=== PATIENT | female | born 1950 | race Caucasian/White ===

== ENCOUNTER → 2022-04-21 | Outpatient (CLI) | payer MEDICARE, OTHER | LOC: PET 11:45 | PROVIDERS: ATTEND Internal Medicine Hematology & Oncology | DX: C76.0 Malignant neoplasm of head, face and neck (principal) | CPT/HCPCS: 78815; A9552 ==

== ENCOUNTER 2022-05-13 12:36 | Inpatient (IN) | payer MEDICARE ==
[2022-05-13] MEDS ORDERED: Acetaminophen 500 MG TAB ONE (13:04)
[2022-05-13] MEDS ORDERED: Ketorolac Tromethamine 30 MG/ML VIAL ONE (13:04)
[2022-05-13] MEDS ORDERED: Midazolam HCl 2 mg/2 ml Vial ONE (15:49)
[2022-05-13] MEDS ORDERED: Ketamine 50 MG/ML (10ML VIAL) ONE (15:49)
[2022-05-13] MEDS ORDERED: Lidocaine 2% PF 5 ML VIAL ONE (15:54)
[2022-05-13] MEDS ORDERED: Bupivacaine/Epinephrine 0.25% 30 ML VIAL ONE (15:54)
[2022-05-13] MEDS ORDERED: Benzocaine 20% Spray 60 ML CAN ONE (15:54)
[2022-05-13] MEDS ORDERED: CEFAZOLIN 2 GM VIAL ONE (16:01)
[2022-05-13] MEDS ORDERED: Sodium Chloride 0.9% 100 ML ONE (16:01)
[2022-05-13] MEDS ORDERED: Ondansetron PF 4 MG/2 ML Vial ONE (16:20)
[2022-05-13] MEDS ORDERED: GLYCOPYRROLATE/PF 0.2 MG/ML VIAL ONE (16:20)
[2022-05-13] MEDS ORDERED: Dexamethasone 20 MG/5 ML VIAL ONE (16:20)
[2022-05-13] MEDS ORDERED: Propofol 1,000 MG/100 ML VIAL IV ONE (18:49)
[2022-05-13] MEDS ORDERED: EPINEPHrine 1 MG/10 ML Abboject SYRINGE ONE (18:58)
[2022-05-13 18:59] LABS: Actual Bicarbonate (HCO3a) 18.4 mEq/L (22-28); Base Excess (BEa) -6.7 mEq/L (-2.0 to +3.0); CO2 Tension 34.8 mmHg (35.0-45.0); Calcium, Ionized (arterial) 1.14 mmol/L (1.12-1.30); Carboxyhemoglobin (COHb) 0.3 gm% (0.0-3.0); Hemoglobin (Hb) 9.3 g/dL (12.0-16.0); O2 Tension (PaO2), arterial 250.8 mmHg (> 70.0); pH, Arterial 7.34 (7.35-7.45)
[2022-05-13] MEDS ORDERED: NOREPINEPHRINE 8 MG/250 ML-D5W 250 ML IVPB SCH (19:00)
[2022-05-13 19:01] LABS: Puncture Site LBA
[2022-05-13] MEDS ORDERED: fentaNYL 50 mcg/mL 1 mL Vial ONE (19:18)
[2022-05-13] MEDS ORDERED: NOREPINEPHRINE 8 MG/250 ML-D5W 250 ML IVPB PRN (20:06)
[2022-05-13] MEDS ORDERED: Electrolyte Replacement Protocol 1 EACH IVPB PRN (20:06)
[2022-05-13] MEDS ORDERED: Ventilator Sedation Protocol 1 EACH FS SCH (20:15)
[2022-05-13] MEDS ORDERED: DISCONTINUE PREVIOUS NARCOTIC PAIN MEDICATIONS AND BENZODIAZEPINES FS SCH (20:15)
[2022-05-13] MEDS ORDERED: Propofol BOLUS 1,000 MG/100 ML VIAL IV PRN (20:15)
[2022-05-13] MEDS ORDERED: Propofol 1,000 MG/100 ML VIAL IV PRN (20:15)
[2022-05-13] MEDS ORDERED: Fentanyl BOLUS 250 ML IVPB PRN (20:15)
[2022-05-13] MEDS ORDERED: Morphine 2 MG/ML VIAL SLOW IVP PRN (20:15)
[2022-05-13] MEDS ORDERED: Promethazine HCl 25 MG/ML VIAL IM/IV PRN (20:30)
[2022-05-13] MEDS ORDERED: Ondansetron HCl/PF 4 MG/2 ML Vial IVP PRN (20:30)
[2022-05-13] MEDS: Fentanyl CADD 100 ML IV SCH (20:30)
[2022-05-13] MEDS: Sodium Chloride 0.45% 1,000 ML IV SCH (20:44)
[2022-05-13] MEDS: Sodium Chloride 0.9% 1,000 ML IV SCH (20:44)
[2022-05-13] MEDS: Famotidine/PF 20 mg/2ml Vial SLOW IVP SCH (20:58)
[2022-05-13] MEDS ORDERED: Dexmedetomidine In 0.9 % NaCl 100 ML IVPB SCH (21:00)
[2022-05-13 21:18] LABS: #Lymphocytes 0.8 thou/uL (1.20-3.40); #Monocytes 0.9 thou/uL (0.11-0.59); #Neutrophils 17.3 thou/uL (1.40-6.50); %Eosinophils 0.2 % (0.0-10.0); %Lymphocytes 4.1 % (21.0-51.0); %Monocytes 4.9 % (0.0-10.0); %Neutrophils 90.8 % (42.0-75.0); Hemoglobin 9.3 g/dL (12.0-16.0); Mean Corpuscular HGB CONC 31.4 g/dL (32.0-36.0); Mean Corpuscular Hemoglobin 24.3 pg (27.0-31.0); Mean Corpuscular Volume 77.3 fl (78.0-98.0); Mean Platelet Volume 7.7 fL (7.4-10.4); Platelet Count 424 10x3/uL (130-400); RBC Distribution Width 15.6 % (11.5-14.5); Red Blood Cell (RBC) Count 3.81 mill/uL (4.20-5.40)
[2022-05-13 21:34] LABS: Lactic Acid 3.6 mmol/L (0.5-2.2)
[2022-05-13 21:39] LABS: ALT (SGPT) 11 U/L (8-55); AST (SGOT) 26 U/L (5-34); Albumin 3.3 g/dL (3.4-4.8); Alkaline Phosphatase 81 U/L (40-110); Anion Gap 19 mmol/L (10-20); BUN (Urea Nitrogen) 17 mg/dL (9.8-20.1); Bilirubin, Total 0.3 mg/dL (0.2-1.2); Calc. Creatinine Clearance 46 mL/min (70-130); Calcium 8.5 mg/dL (7.8-10.44); Carbon Dioxide 15 mmol/L (23-31); Chloride 105 mmol/L (98-107); Estimated GFR 57; Globulin 2.4 g/dL (2.4-3.5); Glucose 232 mg/dL (83-110); Potassium 4.2 mmol/L (3.5-5.1); Protein, Total 5.7 g/dL (5.8-8.1); Sodium 135 mmol/L (136-145)
[2022-05-14] MEDS: Lorazepam 2 MG/ML VIAL SLOW IVP PRN ×2 (00:26→12:38)
[2022-05-14] MEDS: Sodium Chloride 0.45% 1,000 ML IV SCH ×3 (05:23→20:35)
[2022-05-14 06:54] LABS: #Lymphocytes 1.2 thou/uL (1.20-3.40); #Neutrophils 11.2 thou/uL (1.40-6.50); %Basophils 0.1 % (0.0-1.0); %Eosinophils 0.1 % (0.0-10.0); %Lymphocytes 9.1 % (21.0-51.0); %Monocytes 7.6 % (0.0-10.0); %Neutrophils 83.1 % (42.0-75.0); Hemoglobin 9.3 g/dL (12.0-16.0); Mean Corpuscular HGB CONC 30.7 g/dL (32.0-36.0); Mean Corpuscular Hemoglobin 23.7 pg (27.0-31.0); Mean Corpuscular Volume 77.1 fl (78.0-98.0); Mean Platelet Volume 7.6 fL (7.4-10.4); Platelet Count 385 10x3/uL (130-400); RBC Distribution Width 15.7 % (11.5-14.5); Red Blood Cell (RBC) Count 3.92 mill/uL (4.20-5.40); White Blood Cell (WBC) Count 13.4 10x3/uL (4.8-10.8)
[2022-05-14 07:13] LABS: Lactic Acid 1.9 mmol/L (0.5-2.2)
[2022-05-14 07:17] LABS: ALT (SGPT) 12 U/L (8-55); AST (SGOT) 39 U/L (5-34); Albumin 3.6 g/dL (3.4-4.8); Alkaline Phosphatase 83 U/L (40-110); Anion Gap 17 mmol/L (10-20); BUN (Urea Nitrogen) 20 mg/dL (9.8-20.1); Bilirubin, Total 0.4 mg/dL (0.2-1.2); Calc. Creatinine Clearance 44 mL/min (70-130); Calcium 8.5 mg/dL (7.8-10.44); Carbon Dioxide 15 mmol/L (23-31); Chloride 106 mmol/L (98-107); Estimated GFR 55; Globulin 2.6 g/dL (2.4-3.5); Glucose 124 mg/dL (83-110); Potassium 4.1 mmol/L (3.5-5.1); Protein, Total 6.2 g/dL (5.8-8.1); Sodium 134 mmol/L (136-145)
[2022-05-14] MEDS: Dexamethasone 10 MG/ML VIAL SLOW IVP SCH ×2 (09:25→21:51)
[2022-05-14] MEDS: Famotidine/PF 20 mg/2ml Vial SLOW IVP SCH ×2 (09:34→21:51)
[2022-05-14] MEDS: Fentanyl CADD 100 ML IV SCH (16:35)
[2022-05-15 05:02] LABS: #Lymphocytes 0.9 thou/uL (1.20-3.40); #Monocytes 0.7 thou/uL (0.11-0.59); #Neutrophils 13.2 thou/uL (1.40-6.50); %Basophils 0.1 % (0.0-1.0); %Eosinophils 0.1 % (0.0-10.0); %Lymphocytes 6.3 % (21.0-51.0); %Monocytes 4.7 % (0.0-10.0); %Neutrophils 88.8 % (42.0-75.0); Hemoglobin 9.1 g/dL (12.0-16.0); Mean Corpuscular HGB CONC 31.7 g/dL (32.0-36.0); Mean Corpuscular Hemoglobin 24.3 pg (27.0-31.0); Mean Corpuscular Volume 76.6 fl (78.0-98.0); Platelet Count 340 10x3/uL (130-400); RBC Distribution Width 15.8 % (11.5-14.5); Red Blood Cell (RBC) Count 3.76 mill/uL (4.20-5.40); White Blood Cell (WBC) Count 14.9 10x3/uL (4.8-10.8)
[2022-05-15 05:28] LABS: ALT (SGPT) 10 U/L (8-55); AST (SGOT) 45 U/L (5-34); Albumin 3.2 g/dL (3.4-4.8); Alkaline Phosphatase 76 U/L (40-110); Anion Gap 14 mmol/L (10-20); BUN (Urea Nitrogen) 30 mg/dL (9.8-20.1); Bilirubin, Total 0.6 mg/dL (0.2-1.2); Calc. Creatinine Clearance 42 mL/min (70-130); Calcium 8.3 mg/dL (7.8-10.44); Carbon Dioxide 18 mmol/L (23-31); Chloride 105 mmol/L (98-107); Estimated GFR 51; Globulin 2.8 g/dL (2.4-3.5); Glucose 165 mg/dL (83-110); Potassium 4.2 mmol/L (3.5-5.1); Sodium 133 mmol/L (136-145)
[2022-05-15 08:28] LABS: Base Excess (BEa) -5.6 mEq/L (-2.0 to +3.0); Carboxyhemoglobin (COHb) 0.3 gm% (0.0-3.0); Hemoglobin (Hb) 9.4 g/dL (12.0-16.0); O2 Tension (PaO2), arterial 138.5 mmHg (> 70.0); Potassium - ABG Lab 4.03 mmol/L (3.70-5.30); pH, Arterial 7.51 (7.35-7.45)
[2022-05-15 08:29] LABS: ALV-art Gradient 49.775 mmHg (0-20); Puncture Site RRA
[2022-05-15] MEDS: Dexamethasone 10 MG/ML VIAL SLOW IVP SCH ×2 (09:22→20:55)
[2022-05-15] MEDS ORDERED: Racepinephrine 2.25% 0.5 ML NEB ONE (16:46)
[2022-05-15] MEDS: Racepinephrine 2.25% 0.5 ML NEB NEB SCH (18:31)
[2022-05-15] MEDS: Sodium Chloride For Inhalation 0.9% 3 ML NEB NEB SCH (18:31)
[2022-05-15] MEDS: Famotidine/PF 20 mg/2ml Vial SLOW IVP SCH (20:56)
[2022-05-16] MEDS: Sodium Chloride 0.45% 1,000 ML IV SCH ×3 (04:21→22:18)
[2022-05-16 04:39] LABS: Reticulocyte Count 1.2 % (0.5-1.5)
[2022-05-16 04:42] LABS: #Lymphocytes 0.5 thou/uL (1.20-3.40); #Monocytes 0.5 thou/uL (0.11-0.59); #Neutrophils 13.5 thou/uL (1.40-6.50); %Lymphocytes 3.7 % (21.0-51.0); %Monocytes 3.5 % (0.0-10.0); %Neutrophils 92.8 % (42.0-75.0); Hemoglobin 8.5 g/dL (12.0-16.0); Mean Corpuscular HGB CONC 32.5 g/dL (32.0-36.0); Mean Corpuscular Hemoglobin 25.1 pg (27.0-31.0); Mean Corpuscular Volume 77.2 fl (78.0-98.0); Mean Platelet Volume 8.8 fL (7.4-10.4); Platelet Count 298 10x3/uL (130-400); RBC Distribution Width 15.9 % (11.5-14.5); Red Blood Cell (RBC) Count 3.38 mill/uL (4.20-5.40); White Blood Cell (WBC) Count 14.6 10x3/uL (4.8-10.8)
[2022-05-16 05:00] LABS: Iron Binding Capacity, Total 248 mcg/dL (265-497)
[2022-05-16 05:01] LABS: Iron Less than 8 ug/dL (50-170)
[2022-05-16 05:06] LABS: ALT (SGPT) 9 U/L (8-55); AST (SGOT) 20 U/L (5-34); Albumin 3.1 g/dL (3.4-4.8); Alkaline Phosphatase 72 U/L (40-110); Anion Gap 11 mmol/L (10-20); BUN (Urea Nitrogen) 41 mg/dL (9.8-20.1); Bilirubin, Total 0.3 mg/dL (0.2-1.2); Calc. Creatinine Clearance 50 mL/min (70-130); Calcium 8.4 mg/dL (7.8-10.44); Carbon Dioxide 19 mmol/L (23-31); Chloride 108 mmol/L (98-107); Estimated GFR 60; Globulin 2.8 g/dL (2.4-3.5); Glucose 200 mg/dL (83-110); Iron 12 ug/dL (50-170); Iron Binding Capacity, Total 254 mcg/dL (265-497); Potassium 4.3 mmol/L (3.5-5.1); Protein, Total 5.9 g/dL (5.8-8.1); Sodium 134 mmol/L (136-145)
[2022-05-16] MEDS ORDERED: Acetaminophen 325 MG TAB PER TUBE PRN (06:02)
[2022-05-16] MEDS: Acetaminophen 650 MG/20.3 ML UDCUP PER TUBE PRN ×2 (06:24→11:42)
[2022-05-16] MEDS: Racepinephrine 2.25% 0.5 ML NEB NEB SCH ×3 (07:53→19:04)
[2022-05-16] MEDS: Sodium Chloride For Inhalation 0.9% 3 ML NEB NEB SCH ×3 (07:56→19:05)
[2022-05-16] MEDS: Dexamethasone 10 MG/ML VIAL SLOW IVP SCH (10:15)
[2022-05-16] MEDS ORDERED: Ibuprofen 600 MG TAB PER TUBE PRN (13:15)
[2022-05-16] MEDS ORDERED: Polyethylene Glycol 3350 17 GM Packet PER TUBE SCH (13:45)
[2022-05-16] MEDS: Albuterol HFA (OR) 200 PUFF INH INH SCH (19:45)
[2022-05-16] MEDS: Famotidine/PF 20 mg/2ml Vial SLOW IVP SCH (21:21)
[2022-05-16] MEDS: Senokot S 8.6-50 MG TAB PER TUBE SCH (21:22)
[2022-05-17 06:21] LABS: #Lymphocytes 1.3 thou/uL (1.20-3.40); #Monocytes 0.8 thou/uL (0.11-0.59); #Neutrophils 8.8 thou/uL (1.40-6.50); %Eosinophils 0.1 % (0.0-10.0); %Lymphocytes 11.8 % (21.0-51.0); %Monocytes 7.6 % (0.0-10.0); %Neutrophils 80.5 % (42.0-75.0); Hemoglobin 7.7 g/dL (12.0-16.0); Mean Corpuscular HGB CONC 30.1 g/dL (32.0-36.0); Mean Corpuscular Hemoglobin 23.5 pg (27.0-31.0); Mean Platelet Volume 8.5 fL (7.4-10.4); Platelet Count 347 10x3/uL (130-400); Red Blood Cell (RBC) Count 3.27 mill/uL (4.20-5.40); White Blood Cell (WBC) Count 10.9 10x3/uL (4.8-10.8)
[2022-05-17 06:43] LABS: ALT (SGPT) 11 U/L (8-55); AST (SGOT) 17 U/L (5-34); Albumin 3.2 g/dL (3.4-4.8); Alkaline Phosphatase 64 U/L (40-110); Anion Gap 10 mmol/L (10-20); BUN (Urea Nitrogen) 34 mg/dL (9.8-20.1); Bilirubin, Total 0.5 mg/dL (0.2-1.2); Calc. Creatinine Clearance 63 mL/min (70-130); Calcium 8.4 mg/dL (7.8-10.44); Carbon Dioxide 21 mmol/L (23-31); Chloride 111 mmol/L (98-107); Estimated GFR 75; Globulin 2.6 g/dL (2.4-3.5); Glucose 94 mg/dL (83-110); Potassium 4.3 mmol/L (3.5-5.1); Protein, Total 5.8 g/dL (5.8-8.1); Sodium 138 mmol/L (136-145)
[2022-05-17] MEDS: Racepinephrine 2.25% 0.5 ML NEB NEB SCH ×3 (08:25→14:46)
[2022-05-17] MEDS: Sodium Chloride For Inhalation 0.9% 3 ML NEB NEB SCH ×3 (08:25→14:46)
[2022-05-17] MEDS: Albuterol HFA (OR) 200 PUFF INH INH SCH ×3 (08:25→14:49)
[2022-05-17 09:09] VITALS: BMI 24.2
[2022-05-17] MEDS: Senokot S 8.6-50 MG TAB PER TUBE SCH (10:35)
[2022-05-17] MEDS ORDERED: Polyethylene Glycol 3350 17 GM Packet PER TUBE SCH (13:12)
[2022-05-17] MEDS: Dexamethasone 10 MG/ML VIAL SLOW IVP SCH (13:30)
[2022-05-17 13:35] VITALS: BP 136/84; TEMP 97.8
[2022-05-17 14:55] LABS: CO2 Tension 20.5 mmHg (35.0-45.0)
== END 2022-05-17 17:15 | disposition home health service (06) | DRG 579 ==
LOC: SDC 12:36 → CCU 18:54 → MSONC 05-16 15:59
PROVIDERS: ADMIT Emergency Medicine; ATTEND Emergency Medicine
PROC: 0WB63ZX Excision of Neck, Percutaneous Approach, Diagnostic (ICD-10-PCS; principal; 2022-05-13)
PROC: 0JH60WZ Insertion of Totally Implantable Vascular Access Device into Chest Subcutaneous Tissue and Fascia, Open Approach (ICD-10-PCS; 2022-05-13)
PROC: 02HV33Z Insertion of Infusion Device into Superior Vena Cava, Percutaneous Approach (ICD-10-PCS; 2022-05-13)
PROC: B5181ZA Fluoroscopy of Superior Vena Cava using Low Osmolar Contrast, Guidance (ICD-10-PCS; 2022-05-13)
PROC: 0DH63UZ Insertion of Feeding Device into Stomach, Percutaneous Approach (ICD-10-PCS; 2022-05-13)
PROC: 5A1945Z Respiratory Ventilation, 24-96 Consecutive Hours (ICD-10-PCS; 2022-05-13)
PROC: 3E033XZ Introduction of Vasopressor into Peripheral Vein, Percutaneous Approach (ICD-10-PCS; 2022-05-13)
PROC: 0BH17EZ Insertion of Endotracheal Airway into Trachea, Via Natural or Artificial Opening (ICD-10-PCS; 2022-05-13)
PROC: 5A09357 Assistance with Respiratory Ventilation, Less than 24 Consecutive Hours, Continuous Positive Airway Pressure (ICD-10-PCS; 2022-05-15)
DX: C44.42 Squamous cell carcinoma of skin of scalp and neck (principal); J96.00 Acute respiratory failure, unspecified whether with hypoxia or hypercapnia; R57.8 Other shock; T85.628A Displacement of other specified internal prosthetic devices, implants and grafts, initial encounter; E87.1 Hypo-osmolality and hyponatremia; E87.20 Acidosis, unspecified; N17.9 Acute kidney failure, unspecified; E86.0 Dehydration; D50.9 Iron deficiency anemia, unspecified; Y84.8 Other medical procedures as the cause of abnormal reaction of the patient, or of later complication, without mention of misadventure at the time of the procedure; K59.00 Constipation, unspecified; Z78.1 Physical restraint status; Z88.0 Allergy status to penicillin; Z79.899 Other long term (current) drug therapy
CPT/HCPCS: 36415; 36416; 36600; 70490; 71045; 80053; 82728; 82805; 83540; 83550; 83605; 84443; 85025; 85046; 87040; 88305; 88341; 88342; 94002; 94003; 94640; 94660; C1788; J0171; J1100; J1642; J1650; J1885; J2001; J2060; J2250; J2405; J2704; J3010; J3490; J7050; S0028

== ENCOUNTER 2022-05-24 13:11 | Outpatient (CLI) | payer MEDICARE | END 2022-05-24 13:12 | disposition home or self-care (01) | LOC: ULT 13:11 | PROVIDERS: ATTEND Specialist | DX: M79.89 Other specified soft tissue disorders (principal); I82.812 Embolism and thrombosis of superficial veins of left lower extremity ==

== ENCOUNTER → 2022-05-26 | Day surgery (SDC) | payer MEDICARE ==
[~2022-05-26] MED LIST: Iopamidol 300 61% 100 ML VIAL FS ONE
== END | disposition home or self-care (01) ==
LOC: SPEC 12:36
PROVIDERS: ATTEND Specialist
PROC: B51NZZZ Fluoroscopy of Left Upper Extremity Veins (ICD-10-PCS; principal; 2022-05-26)
DX: I87.8 Other specified disorders of veins (principal); Z88.0 Allergy status to penicillin; Z88.4 Allergy status to anesthetic agent
CPT/HCPCS: 36005; Q9967

== ENCOUNTER 2022-06-02 08:17 | Outpatient (CLI) | payer MEDICARE ==
[2022-06-02] MEDS ORDERED: Iopamidol 370 76% 100 ML VIAL ONE (15:16)
== END 2022-06-02 08:18 | disposition home or self-care (01) ==
LOC: CT 08:17
PROVIDERS: ATTEND Radiology Radiation Oncology
DX: C77.0 Secondary and unspecified malignant neoplasm of lymph nodes of head, face and neck (principal); R59.0 Localized enlarged lymph nodes
CPT/HCPCS: 70491; 71260; Q9967

== ENCOUNTER 2022-06-21 18:32 | Inpatient (IN) | payer MEDICARE ==
[~2022-06-21 18:32] MED LIST changes: -Iopamidol 300 61% 100 ML VIAL FS ONE; +Iopamidol 370 76% 100 ML VIAL ONE
[2022-06-21 19:29] LABS: #Monocytes 0.3 thou/uL (0.11-0.59); %Lymphocytes 32.2 % (21.0-51.0); %Monocytes 55.9 % (0.0-10.0); %Neutrophils 6.8 % (42.0-75.0); Hemoglobin 9.5 g/dL (12.0-16.0); Manual Diff?? YES; Mean Corpuscular HGB CONC 30.4 g/dL (32.0-36.0); Mean Corpuscular Hemoglobin 22.8 pg (27.0-31.0); Mean Corpuscular Volume 75.1 fl (78.0-98.0); Mean Platelet Volume 10.4 fL (7.4-10.4); Platelet Count 169 10x3/uL (130-400); RBC Distribution Width 16.6 % (11.5-14.5); Red Blood Cell (RBC) Count 4.17 mill/uL (4.20-5.40); White Blood Cell (WBC) Count 0.6 10x3/uL (4.8-10.8)
[2022-06-21] MEDS ORDERED: Vancomycin 1 GM/200 ML (FROZEN) BAG ONE (19:45)
[2022-06-21] MEDS ORDERED: Cefepime 2 GM VIAL ONE (19:45)
[2022-06-21] MEDS ORDERED: Acetaminophen 325 MG/10.15 ML UDCUP ONE ×2 (19:46→19:50)
[2022-06-21 19:47] LABS: ALT (SGPT) 15 U/L (8-55); AST (SGOT) 13 U/L (5-34); Albumin 3.3 g/dL (3.4-4.8); Alkaline Phosphatase 59 U/L (40-110); Anion Gap 18 mmol/L (10-20); BUN (Urea Nitrogen) 37 mg/dL (9.8-20.1); Bilirubin, Total 1.2 mg/dL (0.2-1.2); Calc. Creatinine Clearance 0 mL/min (70-130); Carbon Dioxide 18 mmol/L (23-31); Chloride 96 mmol/L (98-107); Estimated GFR 33; Globulin 2.5 g/dL (2.4-3.5); Glucose 148 mg/dL (83-110); Protein, Total 5.8 g/dL (5.8-8.1); Sodium 129 mmol/L (136-145)
[2022-06-21 20:15] LABS: Bilirubin Negative (Negative); Blood, Urine Trace (Negative); Clarity Turbid (Clear); Glucose, Urine (Dipstick) Normal (Negative); Ketone, Urine 10 mg/dL (Negative); Leukocyte Negative Leu/uL (Negative); Nitrite Negative (Negative); Protein, Urine (Dipstick) 70 mg/dL (Neg-Trace); RBC/HPF 0-3 HPF (0-3); Specific Gravity, Urine 1.014 (1.002-1.036); Squamous Epithelial None Seen HPF (0-3); Urobilinogen Normal mg/dL (Less than 2); WBC/HPF 0-3 HPF (0-3); Yeast-Budding 2+ HPF (None Seen); pH, Urine 5.5 (5.0-9.0)
[2022-06-21 20:16] LABS: Bacteria/HPF 1+ HPF (None Seen)
[2022-06-21 20:35] LABS: Lymphocytes 36 % (21-51); Monocytes 60 % (0-10); Neutrophil 4 % (42-75); Reflex for Review?? YES; Total Cell Count 100
[2022-06-21 20:52] LABS: SARS-CoV-2 NAA Rapid Test Not Detected (NotDetected)
[2022-06-21] MEDS ORDERED: Acetaminophen 325 MG TAB PO PRN (21:05)
[2022-06-21] MEDS ORDERED: Senokot S 8.6-50 MG TAB PO PRN (21:07)
[2022-06-21] MEDS ORDERED: HYDROcodone/Acetaminophen 5/325 mg Tablet PO PRN ×2 (21:14→21:23)
[2022-06-21 23:53] LABS: Lactic Acid 2.5 mmol/L (0.5-2.2)
[2022-06-22 04:30] LABS: #Monocytes 0.3 thou/uL (0.11-0.59); %Basophils 1.8 % (0.0-1.0); %Lymphocytes 22.8 % (21.0-51.0); %Monocytes 57.9 % (0.0-10.0); Hemoglobin 7.4 g/dL (12.0-16.0); Manual Diff?? YES; Mean Corpuscular HGB CONC 29.6 g/dL (32.0-36.0); Mean Corpuscular Hemoglobin 22.6 pg (27.0-31.0); Mean Corpuscular Volume 76.5 fl (78.0-98.0); Mean Platelet Volume 10.3 fL (7.4-10.4); Platelet Count 130 10x3/uL (130-400); RBC Distribution Width 16.7 % (11.5-14.5); Red Blood Cell (RBC) Count 3.27 mill/uL (4.20-5.40); White Blood Cell (WBC) Count 0.6 10x3/uL (4.8-10.8)
[2022-06-22 04:56] LABS: ALT (SGPT) 18 U/L (8-55); AST (SGOT) 17 U/L (5-34); Alkaline Phosphatase 53 U/L (40-110); Anion Gap 16 mmol/L (10-20); BUN (Urea Nitrogen) 33 mg/dL (9.8-20.1); Calc. Creatinine Clearance 32 mL/min (70-130); Calcium 7.4 mg/dL (7.8-10.44); Carbon Dioxide 18 mmol/L (23-31); Chloride 100 mmol/L (98-107); Estimated GFR 36; Globulin 2.3 g/dL (2.4-3.5); Glucose 143 mg/dL (83-110); Protein, Total 5.3 g/dL (5.8-8.1); Sodium 131 mmol/L (136-145)
[2022-06-22 04:58] LABS: Potassium 2.6 mmol/L (3.5-5.1)
[2022-06-22] MEDS: Acetaminophen 650 MG/20.3 ML UDCUP PO PRN ×3 (05:34→18:26)
[2022-06-22 06:51] LABS: Band 3 % (5-11); CellaVision Operator ID lab.sh2; Hypochromia SLIGHT = 6-15 cells HPF (0-5); Large Platelets 97.1 % (0-5); Lymphocytes 27 % (21-51); Microcytosis SLIGHT = 6-15 cells HPF (0-5); Monocytes 56 % (0-10); Neutrophil 15 % (42-75); Nucleated RBC (Manual Ct) 3 % (0); Platelet Morphology Comment Platelets Normal; Polychromasia SLIGHT = 2-3 cells HPF (0-2); Smudge Cells 32.4 %; Total Cell Count 34
[2022-06-22] MEDS: Cefepime 1 GM in Sodium Chloride 0.9% 100 ML IVPB SCH ×2 (08:45→21:05)
[2022-06-22] MEDS: Potassium Bicarbonate/Cit Ac 20 MEQ TAB PO SCH ×3 (08:46→18:26)
[2022-06-22] MEDS: Heparin 5,000 UNITS/ML VIAL SC SCH ×3 (08:46→21:05)
[2022-06-22] MEDS ORDERED: Aluminum & Magnesium Hydroxide 60 ML, diphenhydrAMINE 150 MG, Lidocaine 2% Viscous Solu... SSW PRN (11:19)
[2022-06-22] MEDS: Sodium Chloride 0.9% 1,000 ML IV SCH ×2 (12:41→21:31)
[2022-06-22] MEDS: metroNIDAZOLE 500 MG in Premix Bag 1 BAG IVPB SCH ×2 (13:12→21:06)
[2022-06-23] MEDS: Acetaminophen 650 MG/20.3 ML UDCUP PO PRN ×4 (00:45→21:38)
[2022-06-23] MEDS ORDERED: Loperamide HCl 2 MG CAP PER TUBE SCH (01:15)
[2022-06-23] MEDS: Ondansetron PF 4 MG/2 ML Vial IVP PRN ×3 (01:17→21:38)
[2022-06-23] MEDS: metroNIDAZOLE 500 MG in Premix Bag 1 BAG IVPB SCH ×3 (05:21→21:40)
[2022-06-23 05:37] LABS: #Monocytes 0.4 thou/uL (0.11-0.59); #Neutrophils 1.1 thou/uL (1.40-6.50); %Basophils 0.5 % (0.0-1.0); %Eosinophils 1.6 % (0.0-10.0); %Lymphocytes 17.1 % (21.0-51.0); %Monocytes 19.3 % (0.0-10.0); Hemoglobin 6.7 g/dL (12.0-16.0); Mean Corpuscular Hemoglobin 22.4 pg (27.0-31.0); Mean Corpuscular Volume 74.6 fl (78.0-98.0); Platelet Count 142 10x3/uL (130-400); RBC Distribution Width 16.9 % (11.5-14.5); Red Blood Cell (RBC) Count 2.99 mill/uL (4.20-5.40); White Blood Cell (WBC) Count 1.9 10x3/uL (4.8-10.8)
[2022-06-23 05:47] LABS: Manual Diff?? YES
[2022-06-23 05:56] LABS: Chloride 105 mmol/L (98-107); Sodium 134 mmol/L (136-145)
[2022-06-23 05:57] LABS: Glucose 123 mg/dL (83-110)
[2022-06-23 05:58] LABS: Anion Gap 11 mmol/L (10-20); Carbon Dioxide 20 mmol/L (23-31)
[2022-06-23 06:00] LABS: Calc. Creatinine Clearance 43 mL/min (70-130); Estimated GFR 52
[2022-06-23 06:01] LABS: BUN (Urea Nitrogen) 26 mg/dL (9.8-20.1)
[2022-06-23 06:02] LABS: Calcium 6.6 mg/dL (7.8-10.44); Potassium 2.2 mmol/L (3.5-5.1)
[2022-06-23] MEDS ORDERED: Electrolyte Replacement Protocol 1 EACH FS SCH (06:07)
[2022-06-23 06:21] LABS: Band 17 % (5-11); CellaVision Operator ID lab.abc; Eosinophils 3 % (0-10); Large Platelets 27.1 % (0-5); Lymphocytes 23 % (21-51); Microcytosis SLIGHT = 6-15 cells HPF (0-5); Monocytes 12 % (0-10); Neutrophil 45 % (42-75); Platelet Clumps 0.8 % (0-5); Platelet Morphology Comment Platelets Normal; Smudge Cells 10.1 %; Total Cell Count 129
[2022-06-23] MEDS: Potassium Chloride 20 MEQ in Premix Bag 1 BAG IVPB SCH ×4 (07:27→13:20)
[2022-06-23] MEDS: Cefepime 2 GM in Sodium Chloride 0.9% 100 ML IVPB SCH ×2 (08:17→21:40)
[2022-06-23] MEDS: Heparin 5,000 UNITS/ML VIAL SC SCH (08:17)
[2022-06-23] MEDS: Sodium Chloride 0.9% 1,000 ML IV SCH ×2 (10:46→21:39)
[2022-06-23] MEDS ORDERED: CALCIUM GLUC 1 GM/NS 50 ML 1 GM in Premix Bag 1 BAG IVPB SCH (13:15)
[2022-06-23] MEDS ORDERED: Calcium Gluconate 4.6 MEQ in Sodium Chloride 0.9% 100 ML IVPB SCH (14:00)
[2022-06-23] MEDS ORDERED: Ibuprofen 100 MG/5 ML UDCUP PO PRN (15:17)
[2022-06-23] MEDS: Loperamide HCl 1 MG/7.5 ML UDCUP PER TUBE PRN ×2 (17:02→21:39)
[2022-06-24 04:35] LABS: #Monocytes 0.7 thou/uL (0.11-0.59); #Neutrophils 8.3 thou/uL (1.40-6.50); %Basophils 0.1 % (0.0-1.0); %Eosinophils 0.4 % (0.0-10.0); %Lymphocytes 8.4 % (21.0-51.0); %Monocytes 6.5 % (0.0-10.0); %Neutrophils 76.9 % (42.0-75.0); Hemoglobin 8.6 g/dL (12.0-16.0); Mean Corpuscular HGB CONC 30.1 g/dL (32.0-36.0); Mean Corpuscular Hemoglobin 22.7 pg (27.0-31.0); Mean Corpuscular Volume 75.5 fl (78.0-98.0); Mean Platelet Volume 10.4 fL (7.4-10.4); RBC Distribution Width 17.6 % (11.5-14.5); Red Blood Cell (RBC) Count 3.79 mill/uL (4.20-5.40); White Blood Cell (WBC) Count 10.8 10x3/uL (4.8-10.8)
[2022-06-24 04:46] LABS: Manual Diff?? YES; Platelet Count 130 10x3/uL (130-400)
[2022-06-24 04:58] LABS: Anion Gap 12 mmol/L (10-20); BUN (Urea Nitrogen) 21 mg/dL (9.8-20.1); Calc. Creatinine Clearance 51 mL/min (70-130); Carbon Dioxide 19 mmol/L (23-31); Chloride 113 mmol/L (98-107); Estimated GFR 65; Glucose 130 mg/dL (83-110); Sodium 142 mmol/L (136-145)
[2022-06-24 05:06] LABS: Potassium 2.3 mmol/L (3.5-5.1)
[2022-06-24 05:45] LABS: Anisocytosis SLIGHT = 6-15 cells HPF (0-5); Band 6 % (5-11); Burr Cells SLIGHT = 2-5 cells HPF (0-1); CellaVision Operator ID lab.sh2; Dohle Bodies MODERATE; Lymphocytes 10 % (21-51); Monocytes 7 % (0-10); Neutrophil 77 % (42-75); Nucleated RBC (Manual Ct) 1 % (0); Ovalocytes SLIGHT = 2-5 cells HPF (0-1); Platelet Morphology Comment Platelets Normal; Poikilocytosis SLIGHT = 6-15 cells HPF (0-5); Polychromasia SLIGHT = 2-3 cells HPF (0-2); Smudge Cells 34.5 %; Total Cell Count 113; Toxic Granulation MODERATE
[2022-06-24] MEDS: Ondansetron PF 4 MG/2 ML Vial IVP PRN (06:09)
[2022-06-24] MEDS: metroNIDAZOLE 500 MG in Premix Bag 1 BAG IVPB SCH ×3 (06:09→22:28)
[2022-06-24 06:45] LABS: Magnesium 1.7 mg/dL (1.6-2.6)
[2022-06-24] MEDS: Cefepime 2 GM in Sodium Chloride 0.9% 100 ML IVPB SCH ×2 (07:45→20:10)
[2022-06-24] MEDS ORDERED: Magnesium 2 GM/50 ML(in water) 2 GM in Premix Bag 1 BAG IVPB SCH (08:00)
[2022-06-24] MEDS: Potassium Chloride 20 MEQ in Premix Bag 1 BAG IVPB SCH ×4 (08:08→12:38)
[2022-06-24] MEDS ORDERED: Metoprolol Tartrate 5 MG/5 ML VIAL ONE (10:12)
[2022-06-24] MEDS ORDERED: Calcium Gluconate 4.6 MEQ in Sodium Chloride 0.9% 100 ML IVPB ONE (10:13)
[2022-06-24] MEDS ORDERED: Metoprolol Tartrate 5 MG/5 ML VIAL IVP SCH (10:15)
[2022-06-24] MEDS ORDERED: CALCIUM GLUC 1 GM/NS 50 ML 1 GM in Premix Bag 1 BAG IVPB SCH (10:30)
[2022-06-24 10:41] LABS: Troponin I 0.012 ng/mL (< 0.028)
[2022-06-24] MEDS: Sodium Chloride 0.9% 1,000 ML IV SCH ×2 (11:24→20:10)
[2022-06-24] MEDS ORDERED: Diltiazem 125 MG in Sodium Chloride 0.9% 100 ML IVPB SCH (12:00)
[2022-06-24 14:03] LABS: Troponin I Less than 0.010 ng/mL (< 0.028)
[2022-06-24] MEDS: PHOS-NAK 1 PKT PACK PO SCH ×3 (15:15→20:14)
[2022-06-24 17:17] LABS: Anion Gap 16 mmol/L (10-20); BUN (Urea Nitrogen) 19 mg/dL (9.8-20.1); Calc. Creatinine Clearance 50 mL/min (70-130); Calcium 7.7 mg/dL (7.8-10.44); Carbon Dioxide 12 mmol/L (23-31); Chloride 116 mmol/L (98-107); Estimated GFR 63; Glucose 131 mg/dL (83-110); Potassium 3.5 mmol/L (3.5-5.1); Sodium 140 mmol/L (136-145)
[2022-06-24 17:19] LABS: Troponin I Less than 0.010 ng/mL (< 0.028)
[2022-06-24] MEDS: Metoprolol Tartrate 25 MG TAB PO SCH (20:14)
[2022-06-25] MEDS: PHOS-NAK 1 PKT PACK PO SCH (01:44)
[2022-06-25 03:53] LABS: #Monocytes 1.7 thou/uL (0.11-0.59); #Neutrophils 15.6 thou/uL (1.40-6.50); %Basophils 0.1 % (0.0-1.0); %Eosinophils 0.2 % (0.0-10.0); %Lymphocytes 9.4 % (21.0-51.0); %Monocytes 7.6 % (0.0-10.0); %Neutrophils 69.8 % (42.0-75.0); Hemoglobin 8.8 g/dL (12.0-16.0); Mean Corpuscular HGB CONC 30.1 g/dL (32.0-36.0); Mean Corpuscular Volume 76.2 fl (78.0-98.0); Mean Platelet Volume 10.3 fL (7.4-10.4); Platelet Count 138 10x3/uL (130-400); RBC Distribution Width 18.4 % (11.5-14.5); Red Blood Cell (RBC) Count 3.83 mill/uL (4.20-5.40); White Blood Cell (WBC) Count 22.4 10x3/uL (4.8-10.8)
[2022-06-25 04:18] LABS: Anion Gap 10 mmol/L (10-20); BUN (Urea Nitrogen) 17 mg/dL (9.8-20.1); Calc. Creatinine Clearance 58 mL/min (70-130); Calcium 7.2 mg/dL (7.8-10.44); Carbon Dioxide 22 mmol/L (23-31); Chloride 113 mmol/L (98-107); Estimated GFR 76; Glucose 118 mg/dL (83-110); Magnesium 1.9 mg/dL (1.6-2.6); Potassium 2.9 mmol/L (3.5-5.1); Sodium 142 mmol/L (136-145)
[2022-06-25] MEDS: metroNIDAZOLE 500 MG in Premix Bag 1 BAG IVPB SCH ×3 (06:16→21:47)
[2022-06-25] MEDS: Sodium Chloride 0.9% 1,000 ML IV SCH ×2 (06:24→17:32)
[2022-06-25] MEDS ORDERED: Magnesium 2 GM/50 ML(in water) 2 GM in Premix Bag 1 BAG IVPB SCH (08:00)
[2022-06-25] MEDS: Cefepime 2 GM in Sodium Chloride 0.9% 100 ML IVPB SCH ×2 (08:33→21:07)
[2022-06-25] MEDS: Potassium Chloride 20 MEQ TAB PO SCH ×2 (08:35→12:49)
[2022-06-25] MEDS: Metoprolol Tartrate 25 MG TAB PO SCH ×2 (08:38→21:11)
[2022-06-25] MEDS: Loperamide HCl 1 MG/7.5 ML UDCUP PER TUBE PRN (08:58)
[2022-06-25 14:48] LABS: Albumin 2.4 g/dL (3.4-4.8); Phosphorus 1.4 mg/dL (2.3-4.7); Potassium 2.6 mmol/L (3.5-5.1)
[2022-06-25] MEDS ORDERED: PHOS-NAK 1 PKT PACK PO SCH (16:30)
[2022-06-25] MEDS ORDERED: Potassium Chloride 20 MEQ TAB PO SCH (16:30)
[2022-06-25] MEDS ORDERED: Potassium Phosphate 22 MMOL in Sodium Chloride 0.9% 250 ML 250 ML IVPB SCH (19:15)
[2022-06-25] MEDS ORDERED: Potassium Chloride 10 MEQ in Premix Bag 1 BAG IVPB SCH (21:30)
[2022-06-26 05:14] LABS: Hemoglobin 8.1 g/dL (12.0-16.0); Mean Corpuscular HGB CONC 30.5 g/dL (32.0-36.0); Mean Corpuscular Hemoglobin 23.3 pg (27.0-31.0); Mean Corpuscular Volume 76.4 fl (78.0-98.0); Mean Platelet Volume 10.2 fL (7.4-10.4); Platelet Count 165 10x3/uL (130-400); RBC Distribution Width 18.4 % (11.5-14.5); Red Blood Cell (RBC) Count 3.48 mill/uL (4.20-5.40); White Blood Cell (WBC) Count 28.3 10x3/uL (4.8-10.8)
[2022-06-26 05:25] LABS: Delete Auto Diff?? YES; Manual Diff?? YES
[2022-06-26 05:36] LABS: Anion Gap 10 mmol/L (10-20); BUN (Urea Nitrogen) 12 mg/dL (9.8-20.1); Calc. Creatinine Clearance 68 mL/min (70-130); Carbon Dioxide 24 mmol/L (23-31); Chloride 111 mmol/L (98-107); Estimated GFR 90; Glucose 107 mg/dL (83-110); Magnesium 1.2 mg/dL (1.6-2.6); Potassium 2.7 mmol/L (3.5-5.1); Sodium 142 mmol/L (136-145)
[2022-06-26] MEDS: metroNIDAZOLE 500 MG in Premix Bag 1 BAG IVPB SCH ×3 (05:45→22:36)
[2022-06-26] MEDS: Sodium Chloride 0.9% 1,000 ML IV SCH ×3 (05:45→22:36)
[2022-06-26] MEDS ORDERED: Magnesium Sulfate In Water 4 GM in Premix Bag 1 BAG IVPB SCH (06:00)
[2022-06-26 06:02] LABS: Anisocytosis SLIGHT = 6-15 cells HPF (0-5); Band 11 % (5-11); Elliptocytes SLIGHT = 2-5 cells HPF (0-1); Hypochromia SLIGHT = 6-15 cells HPF (0-5); Lymphocytes 7 % (21-51); Monocytes 5 % (0-10); Myelocyte 1 % (0-0); Neutrophil 76 % (42-75); Ovalocytes SLIGHT = 2-5 cells HPF (0-1); Platelet Morphology Comment Platelets Normal; Polychromasia SLIGHT = 2-3 cells HPF (0-2); Target Cells SLIGHT = 2-5 cells HPF (0-1); Tear Drops SLIGHT = 2-5 cells HPF (0-1); Total Cell Count 101; Toxic Granulation SLIGHT
[2022-06-26 06:05] LABS: Calcium 6.7 mg/dL (7.8-10.44)
[2022-06-26 06:06] LABS: Phosphorus 2.4 mg/dL (2.3-4.7)
[2022-06-26] MEDS: Potassium Chloride 40 MEQ in Premix Bag 1 BAG IVPB SCH ×2 (06:38→11:39)
[2022-06-26] MEDS ORDERED: CALCIUM GLUC 1 GM/NS 50 ML 1 GM in Premix Bag 1 BAG IVPB SCH (08:00)
[2022-06-26] MEDS: Calcium Carbonate 500 MG ChewTAB PER TUBE SCH ×2 (08:10→22:38)
[2022-06-26] MEDS: Metoprolol Tartrate 25 MG TAB PO SCH ×2 (08:10→22:38)
[2022-06-26] MEDS: Cefepime 2 GM in Sodium Chloride 0.9% 100 ML IVPB SCH ×2 (08:10→20:19)
[2022-06-26 15:16] LABS: Potassium 3.3 mmol/L (3.5-5.1)
[2022-06-26] MEDS: Potassium Chloride 20 MEQ TAB PER TUBE SCH (16:43)
[2022-06-27] MEDS: metroNIDAZOLE 500 MG in Premix Bag 1 BAG IVPB SCH ×3 (05:34→21:32)
[2022-06-27 05:48] LABS: #Basophils 0.1 thou/uL (0.0-0.2); #Monocytes 1.7 thou/uL (0.11-0.59); #Neutrophils 20.5 thou/uL (1.40-6.50); %Basophils 0.5 % (0.0-1.0); %Eosinophils 0.1 % (0.0-10.0); %Lymphocytes 8.4 % (21.0-51.0); %Monocytes 5.8 % (0.0-10.0); %Neutrophils 71.5 % (42.0-75.0); Hemoglobin 7.8 g/dL (12.0-16.0); Mean Corpuscular HGB CONC 30.6 g/dL (32.0-36.0); Mean Corpuscular Hemoglobin 23.4 pg (27.0-31.0); Mean Corpuscular Volume 76.6 fl (78.0-98.0); Mean Platelet Volume 10.4 fL (7.4-10.4); Platelet Count 210 10x3/uL (130-400); RBC Distribution Width 18.6 % (11.5-14.5); Red Blood Cell (RBC) Count 3.33 mill/uL (4.20-5.40); White Blood Cell (WBC) Count 28.7 10x3/uL (4.8-10.8)
[2022-06-27 05:53] LABS: Manual Diff?? YES
[2022-06-27 06:34] LABS: Band 16 % (5-11); Burr Cells SLIGHT = 2-5 cells HPF (0-1); Eosinophils 1 % (0-10); Hypochromia SLIGHT = 6-15 cells HPF (0-5); Lymphocytes 3 % (21-51); Microcytosis SLIGHT = 6-15 cells HPF (0-5); Monocytes 6 % (0-10); Myelocyte 1 % (0-0); Neutrophil 72 % (42-75); Ovalocytes SLIGHT = 2-5 cells HPF (0-1); Platelet Morphology Comment Platelets Normal; Polychromasia SLIGHT = 2-3 cells HPF (0-2); Tear Drops SLIGHT = 2-5 cells HPF (0-1); Total Cell Count 101
[2022-06-27 06:45] LABS: Anion Gap 12 mmol/L (10-20); BUN (Urea Nitrogen) 9 mg/dL (9.8-20.1); Calc. Creatinine Clearance 78 mL/min (70-130); Calcium 7.2 mg/dL (7.8-10.44); Carbon Dioxide 24 mmol/L (23-31); Chloride 109 mmol/L (98-107); Estimated GFR 94; Glucose 118 mg/dL (83-110); Magnesium 1.7 mg/dL (1.6-2.6); Potassium 2.8 mmol/L (3.5-5.1); Sodium 142 mmol/L (136-145)
[2022-06-27] MEDS: Calcium Carbonate 500 MG ChewTAB PER TUBE SCH ×3 (08:42→21:07)
[2022-06-27] MEDS: Metoprolol Tartrate 25 MG TAB PO SCH ×2 (08:42→21:07)
[2022-06-27] MEDS: Cefepime 2 GM in Sodium Chloride 0.9% 100 ML IVPB SCH ×2 (08:42→15:06)
[2022-06-27] MEDS: Sodium Chloride 0.9% 1,000 ML IV SCH ×2 (08:42→18:13)
[2022-06-27] MEDS ORDERED: Ergocalciferol 1.25 MG(50,000 UNITS) CAP PO SCH (09:30)
[2022-06-27] MEDS ORDERED: Magnesium 2 GM/50 ML(in water) 2 GM in Premix Bag 1 BAG IVPB SCH (09:45)
[2022-06-27 10:31] VITALS: BMI 25.4
[2022-06-27] MEDS: Potassium Chloride 20 MEQ TAB PER TUBE SCH ×3 (15:04→21:07)
[2022-06-27] MEDS: Acetaminophen 650 MG/20.3 ML UDCUP PO PRN (15:05)
[2022-06-27] MEDS: Apixaban 5 MG TAB PO SCH (21:07)
[2022-06-28] MEDS: Cefepime 2 GM in Sodium Chloride 0.9% 100 ML IVPB SCH ×3 (00:26→16:20)
[2022-06-28] MEDS: Sodium Chloride 0.9% 1,000 ML IV SCH ×2 (00:29→17:43)
[2022-06-28] MEDS: metroNIDAZOLE 500 MG in Premix Bag 1 BAG IVPB SCH ×2 (06:00→14:40)
[2022-06-28 07:00] LABS: ALT (SGPT) 14 U/L (8-55); AST (SGOT) 16 U/L (5-34); Albumin 2.5 g/dL (3.4-4.8); Alkaline Phosphatase 146 U/L (40-110); Anion Gap 10 mmol/L (10-20); BUN (Urea Nitrogen) 8 mg/dL (9.8-20.1); Bilirubin, Total 0.3 mg/dL (0.2-1.2); Calc. Creatinine Clearance 79 mL/min (70-130); Calcium 7.1 mg/dL (7.8-10.44); Carbon Dioxide 27 mmol/L (23-31); Chloride 106 mmol/L (98-107); Estimated GFR 95; Glucose 101 mg/dL (83-110); Potassium 2.7 mmol/L (3.5-5.1); Protein, Total 4.5 g/dL (5.8-8.1); Sodium 140 mmol/L (136-145)
[2022-06-28] MEDS: Calcium Carbonate 500 MG ChewTAB PER TUBE SCH ×2 (09:54→14:44)
[2022-06-28] MEDS: Apixaban 5 MG TAB PO SCH (09:54)
[2022-06-28] MEDS: Potassium Chloride 20 MEQ TAB PER TUBE SCH ×2 (09:54→14:44)
[2022-06-28] MEDS: Metoprolol Tartrate 25 MG TAB PO SCH (09:54)
[2022-06-28 12:12] VITALS: BP 144/75; TEMP 98.9
[2022-06-28] MEDS: Potassium Chloride 20 MEQ TAB PO SCH (17:42)
== END 2022-06-28 17:50 | disposition home health service (06) | DRG 392 ==
LOC: ERS 18:32 → 2NO 21:07 → MSONC 06-22 11:42 → IMCU/EMU 06-24 09:51 → MSONC 06-26 20:37
PROVIDERS: ADMIT Internal Medicine; ATTEND Internal Medicine
PROC: 30233N1 Transfusion of Nonautologous Red Blood Cells into Peripheral Vein, Percutaneous Approach (ICD-10-PCS; principal; 2022-06-23)
DX: K57.32 Diverticulitis of large intestine without perforation or abscess without bleeding (principal); N17.9 Acute kidney failure, unspecified; R78.81 Bacteremia; D84.9 Immunodeficiency, unspecified; I47.1 Supraventricular tachycardia; I49.1 Atrial premature depolarization; Z20.822 Contact with and (suspected) exposure to COVID-19; R13.10 Dysphagia, unspecified; K52.9 Noninfective gastroenteritis and colitis, unspecified; K12.1 Other forms of stomatitis; E87.6 Hypokalemia; E83.51 Hypocalcemia; B96.1 Klebsiella pneumoniae [K. pneumoniae] as the cause of diseases classified elsewhere; C44.42 Squamous cell carcinoma of skin of scalp and neck; D70.3 Neutropenia due to infection; R50.81 Fever presenting with conditions classified elsewhere; Z93.1 Gastrostomy status; Z88.0 Allergy status to penicillin; Z88.8 Allergy status to other drugs, medicaments and biological substances; Z79.01 Long term (current) use of anticoagulants; Z79.899 Other long term (current) drug therapy
CPT/HCPCS: 36415; 36430; 51701; 71045; 74177; 80048; 80053; 81003; 81015; 82306; 83605; 83735; 84100; 84484; 85025; 85060; 86850; 86900; 86901; 87040; 87077; 87086; 87149; 87186; 93005; 93010; 96365; 96367; J0613; J0692; J1642; J1644; J1650; J2405; J3370-JW; J3475; J3480; J3490; J7050; P9016; Q0163; Q9967

== ENCOUNTER 2022-12-28 11:45 | Outpatient (CLI) | payer MEDICARE | END 2022-12-28 11:46 | disposition home or self-care (01) | LOC: PET 11:45 | PROVIDERS: ATTEND Radiology Radiation Oncology | DX: C77.0 Secondary and unspecified malignant neoplasm of lymph nodes of head, face and neck (principal); M94.8X5 Other specified disorders of cartilage, thigh | CPT/HCPCS: 78815; A9552 ==